=== PATIENT | male | born 1995 | race Hispanic/Latino ===

== ENCOUNTER 2018-03-05 00:13 | Emergency (ER) | payer SELFPAY ==
[2018-03-05 00:33] VITALS: TEMP 98.9
[2018-03-05] MEDS ORDERED: Sodium Chloride 0.9% 1,000 ML IV STA (01:24)
[2018-03-05 02:13] LABS: ALB/GLOB RATIO 1.4 (1.0-2.1); ALBUMIN 4.2 g/dL (3.5-5.0); ALT/SGPT 97 U/L (21-72); AST/SGOT 39 U/L (17-59); BASO % 0.4 % (0.0-2.0); BLOOD UREA NITROGEN 19 mg/dl (9-20); CALCIUM 8.8 mg/dL (8.4-10.2); EOS % 0.7 % (0.0-4.0); GFR NON-AFRICAN AMERICAN > 60; HEMOGLOBIN 15.4 g/dL (12.0-18.0); LYMPH # 1.8 K/uL (1.0-4.3); MEAN CELL VOLUME 89.8 fl (80.0-94.0); MEAN CORPUSCULAR HEMOGLOBIN 30.8 pg (27.0-31.0); MEAN CORPUSCULAR HGB CONC 34.3 g/dL (33.0-37.0); MEAN PLATELET VOLUME 8.7 fl (7.2-11.7); MONO % 15.3 % (0.0-10.0); NEUT # 3.9 K/uL (1.8-7.0); NEUT % 57.6 % (50.0-75.0); NRBC % 0.4 % (0.0-0.0); RED CELL DISTRIBUTION WIDTH 12.6 % (11.5-14.5); WHITE BLOOD COUNT 6.8 K/uL (4.8-10.8)
--- NOTE | 2018-03-05 03:05 | ED PDOC ---
HPI:Nausea, Vomiting, Diarrhea Time Seen by Provider: 03/05/18 00:39 Chief Complaint (Nursing): GI Problem Chief Complaint (Provider): GI Problem History Per: Patient History/Exam Limitations: no limitations Onset/Duration Of Symptoms: Days (x2) Current Symptoms Are (Timing): Still Present Additional Complaint(s): 22 year old male presents to ED with complaints of vomiting, diarrhea, general bodyaches, subjective fever, and chills for 2 days. Patient states he had 1 episode of vomiting with blood-tinged coloration, thus, prompting ED visit. He reports taking DayQuil with some relief and has not had flu shot this year. PCP: none provided Past Medical History Reviewed: Historical Data, Nursing Documentation, Vital Signs Vital Signs: Last Vital Signs Temp 98.9 F 03/05/18 00:21 Pulse 119 H 03/05/18 00:21 Resp 17 03/05/18 00:21 BP 117/83 03/05/18 00:21 Pulse Ox 96 03/05/18 00:21 - Medical History PMH: No Chronic Diseases - Surgical History Surgical History: No Surg Hx - Family History Family History: States: Unknown Family Hx - Immunization History Hx Influenza Vaccination: No - Home Medications Home Medications: Ambulatory Orders Medication Instructions Recorded Dicyclomine [Bentyl] 20 mg PO Q12 PRN #20 tab 03/05/18 Ondansetron ODT [Zofran ODT] 4 mg PO Q6 PRN #8 odt 03/05/18 Oseltamivir Cap [Tamiflu] 75 mg PO BID #10 cap 03/05/18 - Allergies Allergies/Adverse Reactions: Allergies Allergy/AdvReac Type Severity Reaction Status Date / Time diphenhydramine Allergy Mild RASH Verified 03/05/18 00:33 [From Benadryl] Review of Systems ROS Statement: Except As Marked, All Systems Reviewed And Found Negative Constitutional: Positive for: Fever (subjective), Chills, Other (general bodyaches) Gastrointestinal: Positive for: Vomiting, Diarrhea Physical Exam - Reviewed Nursing Documentation Reviewed: Yes Vital Signs Reviewed: Yes - Physical Exam Appears: Positive for: Non-toxic, No Acute Distress Head Exam: Positive for: ATRAUMATIC, NORMAL INSPECTION, NORMOCEPHALIC Skin: Positive for: Normal Color Eye Exam: Positive for: Normal appearance, EOMI, PERRL ENT: Positive for: TM Is/Are (clear bilaterally), Other (dry mucous membranes). Negative for: Pharyngeal Erythema, Tonsillar Exudate, Tonsillar Swelling Neck: Positive for: Normal, Supple Cardiovascular/Chest: Positive for: Chest Non Tender, Tachycardia (with regular rate) Respiratory: Positive for: Normal Breath Sounds. Negative for: Wheezing, Respiratory Distress Gastrointestinal/Abdominal: Positive for: Normal Exam, Soft. Negative for: Tenderness Neurologic/Psych: Positive for: Alert, Oriented (x3). Negative for: Motor/Sensory Deficits - Laboratory Results Result Diagrams: 03/05/18 01:52 03/05/18 01:52 - ECG O2 Sat by Pulse Oximetry: 96 (RA) Pulse Ox Interpretation: Normal Medical Decision Making Medical Decision Making: Initial Impression: 22 year old male with influenza-like symptoms. Initial Plan: * Labs * IV fluids * Tamiflu Cap 75mg PO * Zofran 4mg IV * Blood culture * Influenza AB Time: 225 --Labs reviewed: no significant clinical abnormality with exception of (+) influenza. Upon provider reevaluation, patient is medically stable, reports improvement in symptoms, and requires no further treatment in the ED at this time. Patient will be discharged home with Rx for Bentyl, Zofran, and Tamiflu. Counseling was provided and all questions were answered regarding diagnosis. There is agreement to discharge plan. Return if symptoms persist or worsen. Clinical Impression: Influenza; Gastroenteritis - Scribe Attestation: Documented by Aretha Smith, acting as a scribe for Yeyo Campbell MD. Provider Scribe Attestation: All medical record entries made by the Scribe were at my direction and pers onally dictated by me. I have reviewed the chart and agree that the record accurately reflects my personal performance of the history, physical exam, medical decision making, and the department course for this patient. I have also personally directed, reviewed, and agree with the discharge instructions and disposition. Disposition - Clinical Impression Clinical Impression: Gastroenteritis, Influenza - Patient ED Disposition Is Patient to be Admitted: No Counseled Patient/Family Regarding: Studies Performed, Diagnosis, Rx Given - Disposition Disposition: Routine/Home Disposition Time: 02:26 Condition: STABLE Prescriptions: Dicyclomine [Bentyl] 20 mg PO Q12 PRN #20 tab PRN Reason: abdominal pain/diarrhea Ondansetron ODT [Zofran ODT] 4 mg PO Q6 PRN #8 odt PRN Reason: Nausea/Vomiting Oseltamivir Cap [Tamiflu] 75 mg PO BID #10 cap Instructions: Flu, Viral Gastroenteritis Forms: [employer] ([employer])
[2018-03-05 03:23] VITALS: BP 115/74; PULSE 96; RESP 15; O2SAT 97
== END 2018-03-05 03:23 | disposition home or self-care (01) ==
LOC: H.ER 00:13
DX: J11.1 Influenza due to unidentified influenza virus with other respiratory manifestations (principal); K52.9 Noninfective gastroenteritis and colitis, unspecified; M79.18 Myalgia, other site
CPT/HCPCS: 80053; 83605; 85025; 87040; 87804; 96360; 99283; J2405; J7030